=== PATIENT | male | born 1985 ===

== ENCOUNTER 2020-11-07 10:25 | Inpatient (IN) ==
[2020-11-07] MEDS ORDERED: NS 0.9% 1000 ml BAG 2,000 ML IV ONE (10:49)
[2020-11-07 11:34] LABS: Venous Bicarbonate HCO3 28.5 mmol/L (24-28)
[2020-11-07 11:41] LABS: ABS Lymphocytes 0.9 10^3/ul (1.0-4.8); ABS Monocytes 0.7 10^3/ul (0-0.8); ABS Neutrophils 9.5 10^3/ul (1.5-7.7); Hematocrit 44 % (42-52); Hemoglobin 15.6 g/dL (14.0-18.0); Lymphocyte % 7.9 %; Mean Corpuscular HGB Conc 35 g/dL (31-36); Mean Corpuscular Hemoglobin 31 pg (27-31); Mean Corpuscular Volume 88 fL (80-94); Mean Platelet Volume 8.3 fL (7.4-10.4); Nucleated Red Blood Cells % 0.1; Platelet Count 308 10^3/uL (150-450); Red Blood Count 5.02 10^6 /uL (4.18-5.48); Red Cell Distribution Width 12 % (10-15); White Blood Count 11.1 10^3/uL (3.5-10.8)
[2020-11-07 11:47] LABS: Activated Partial Thrombo Time 28.7 seconds (26.0-38.0); INR 1.21 (0.86-1.15)
[2020-11-07 11:54] LABS: Rapid COVID-19 Molecular Detected (Undetected)
[2020-11-07 11:56] LABS: Troponin I 0.01 ng/mL (<0.03)
[2020-11-07 11:56] LABS: Influenza A Molecular Negative (Negative); Influenza B Molecular Negative (Negative)
[2020-11-07 12:16] LABS: Albumin 3.9 g/dL (3.2-5.2); Albumin/Globulin Ratio 1.2 (1-3); C Reactive Protein 127.03 mg/L (<8.01); Calcium 8.9 mg/dL (8.6-10.3); EGFR African American 97.3 (>60); EGFR Non-African American 80.4 (>60); Globulin 3.2 g/dL (2-4); Potassium 4.2 mmol/L (3.5-5.0); Total Bilirubin 0.9 mg/dL (0.2-1.0); Total Protein 7.1 g/dL (6.4-8.9)
[2020-11-07 13:14] LABS: Ferritin 3041.3 ng/mL (24-336)
[2020-11-07] MEDS ORDERED: Al Hydrox/Mg Hydrox/Simet LIQ 30 ML UDC PO PRN (15:03)
[2020-11-07] MEDS ORDERED: Dexamethasone IV 4 MG/ML VIAL 1 ml VIAL IV SLOW PU ONE (15:08)
[2020-11-07] MEDS ORDERED: Albuterol HFA INHALER 8 gm MDI INH PRN (15:10)
[2020-11-07] MEDS ORDERED: Remdesivir 100 mg Vial 200 MG in NS 0.9% 250 ml 210 ML IV ONE (15:45)
[2020-11-07] MEDS: Enoxaparin 40 MG/0.4 ML SYR SUBCUT SCH (16:58)
[2020-11-08 05:03] LABS: ABS Lymphocytes 0.9 10^3/ul (1.0-4.8); ABS Monocytes 0.6 10^3/ul (0-0.8); ABS Neutrophils 7.2 10^3/ul (1.5-7.7); Hematocrit 43 % (42-52); Hemoglobin 15.2 g/dL (14.0-18.0); Lymphocyte % 10.5 %; Mean Corpuscular HGB Conc 35 g/dL (31-36); Mean Corpuscular Hemoglobin 32 pg (27-31); Mean Corpuscular Volume 90 fL (80-94); Mean Platelet Volume 7.9 fL (7.4-10.4); Platelet Count 341 10^3/uL (150-450); Red Blood Count 4.81 10^6 /uL (4.18-5.48); Red Cell Distribution Width 13 % (10-15); White Blood Count 8.7 10^3/uL (3.5-10.8)
[2020-11-08 05:13] LABS: INR 1.2 (0.86-1.15)
[2020-11-08 05:26] LABS: Calcium 8.9 mg/dL (8.6-10.3); EGFR African American 106.6 (>60); EGFR Non-African American 88.1 (>60); Potassium 4.5 mmol/L (3.5-5.0)
[2020-11-08] MEDS ORDERED: Furosemide 20 mg/2 ml IV VIAL IV ONE (10:15)
[2020-11-08 10:56] LABS: PCO2 Arterial 34 mmHg (35-45); PO2 Arterial 75 mmHg (80-100)
[2020-11-08] MEDS ORDERED: methylPREDNISolone 125 mg 2 ML VIAL IV ONE (11:04)
[2020-11-08] MEDS: BARICITINIB 2 MG PO SCH (11:32)
[2020-11-08] MEDS: Enoxaparin 40 MG/0.4 ML SYR SUBCUT SCH (17:46)
[2020-11-08] MEDS: Remdesivir 100 mg Vial 100 MG in NS 0.9% 250 ml 230 ML IV SCH (21:09)
[2020-11-08] MEDS: methylPREDNISolone SOD 40 mg/ml 1 ml VIAL IV SCH (21:09)
[2020-11-09 05:19] LABS: INR 1.23 (0.86-1.15)
[2020-11-09 05:36] LABS: Albumin 3.8 g/dL (3.2-5.2); Albumin/Globulin Ratio 1.1 (1-3); Calcium 9.1 mg/dL (8.6-10.3); EGFR African American 110.5 (>60); EGFR Non-African American 91.3 (>60); Globulin 3.4 g/dL (2-4); Potassium 4.3 mmol/L (3.5-5.0); Total Bilirubin 0.8 mg/dL (0.2-1.0); Total Protein 7.2 g/dL (6.4-8.9)
[2020-11-09] MEDS: methylPREDNISolone SOD 40 mg/ml 1 ml VIAL IV SCH ×2 (08:33→20:25)
[2020-11-09] MEDS: BARICITINIB 2 MG PO SCH (10:56)
[2020-11-09] MEDS ORDERED: Furosemide 40 mg/4 ml IV VIAL IV SLOW PU ONE (16:15)
[2020-11-09] MEDS: Enoxaparin 40 MG/0.4 ML SYR SUBCUT SCH (16:38)
[2020-11-09 16:47] LABS: PCO2 Arterial 38 mmHg (35-45); PO2 Arterial 73 mmHg (80-100)
[2020-11-09] MEDS: Remdesivir 100 mg Vial 100 MG in NS 0.9% 250 ml 230 ML IV SCH (20:39)
[2020-11-10 04:45] LABS: ABS Basophils 0.1 10^3/ul (0-0.2); ABS Lymphocytes 1.7 10^3/ul (1.0-4.8); ABS Monocytes 0.9 10^3/ul (0-0.8); ABS Neutrophils 9.5 10^3/ul (1.5-7.7); Hematocrit 45 % (42-52); Hemoglobin 15.2 g/dL (14.0-18.0); Mean Corpuscular HGB Conc 34 g/dL (31-36); Mean Corpuscular Hemoglobin 30 pg (27-31); Mean Corpuscular Volume 90 fL (80-94); Platelet Count 529 10^3/uL (150-450); Red Blood Count 5.01 10^6 /uL (4.18-5.48); Red Cell Distribution Width 12 % (10-15); White Blood Count 12.1 10^3/uL (3.5-10.8)
[2020-11-10 04:58] LABS: INR 1.28 (0.86-1.15)
[2020-11-10 05:24] LABS: Albumin 3.5 g/dL (3.2-5.2); CO2 Carbon Dioxide 31 mmol/L (22-32); Calcium 8.8 mg/dL (8.6-10.3); Chloride 97 mmol/L (101-111); Sodium 137 mmol/L (135-145)
[2020-11-10 05:29] LABS: ALT 128 U/L (7-52); Albumin/Globulin Ratio 1.1 (1-3); Alkaline Phosphatase 58 U/L (35-149); Blood Urea Nitrogen 26 mg/dL (6-24); EGFR African American 93.2 (>60); Globulin 3.1 g/dL (2-4); Glucose 201 mg/dL (70-100); Total Protein 6.6 g/dL (6.4-8.9)
[2020-11-10 06:16] LABS: Anion Gap 9 mmol/L (2-11)
[2020-11-10] MEDS: Enoxaparin 60 MG/0.6 ML SYR SUBCUT SCH ×2 (07:52→19:57)
[2020-11-10] MEDS: methylPREDNISolone SOD 40 mg/ml 1 ml VIAL IV SCH ×2 (07:52→19:57)
[2020-11-10] MEDS: BARICITINIB 2 MG PO SCH (09:09)
[2020-11-10] MEDS: Remdesivir 100 mg Vial 100 MG in NS 0.9% 250 ml 230 ML IV SCH (19:57)
[2020-11-11 06:24] LABS: ABS Lymphocytes 1.8 10^3/ul (1.0-4.8); ABS Monocytes 1.1 10^3/ul (0-0.8); ABS Neutrophils 9.7 10^3/ul (1.5-7.7); Hematocrit 43 % (42-52); Hemoglobin 14.9 g/dL (14.0-18.0); Mean Corpuscular HGB Conc 35 g/dL (31-36); Mean Corpuscular Hemoglobin 31 pg (27-31); Mean Corpuscular Volume 89 fL (80-94); Mean Platelet Volume 7.8 fL (7.4-10.4); Platelet Count 492 10^3/uL (150-450); Red Blood Count 4.82 10^6 /uL (4.18-5.48); Red Cell Distribution Width 12 % (10-15); White Blood Count 12.6 10^3/uL (3.5-10.8)
[2020-11-11 06:28] LABS: INR 1.23 (0.86-1.15)
[2020-11-11 06:46] LABS: Albumin 3.3 g/dL (3.2-5.2); Albumin/Globulin Ratio 1.1 (1-3); Calcium 8.6 mg/dL (8.6-10.3); EGFR African American 114.7 (>60); EGFR Non-African American 94.8 (>60); Potassium 4.5 mmol/L (3.5-5.0); Total Bilirubin 0.6 mg/dL (0.2-1.0); Total Protein 6.3 g/dL (6.4-8.9)
[2020-11-11] MEDS: methylPREDNISolone SOD 40 mg/ml 1 ml VIAL IV SCH (08:40)
[2020-11-11] MEDS: Enoxaparin 60 MG/0.6 ML SYR SUBCUT SCH ×2 (08:40→21:13)
[2020-11-11] MEDS: BARICITINIB 2 MG PO SCH (08:41)
[2020-11-11] MEDS: Remdesivir 100 mg Vial 100 MG in NS 0.9% 250 ml 230 ML IV SCH (21:11)
[2020-11-12 06:17] LABS: ABS Lymphocytes 3.6 10^3/ul (1.0-4.8); ABS Monocytes 1.1 10^3/ul (0-0.8); ABS Neutrophils 8.7 10^3/ul (1.5-7.7); Eosinophil % 0.2 %; Hematocrit 44 % (42-52); Hemoglobin 15.3 g/dL (14.0-18.0); Lymphocyte % 26.4 %; Mean Corpuscular HGB Conc 35 g/dL (31-36); Mean Corpuscular Hemoglobin 31 pg (27-31); Mean Corpuscular Volume 89 fL (80-94); Mean Platelet Volume 7.7 fL (7.4-10.4); Platelet Count 474 10^3/uL (150-450); Red Blood Count 4.98 10^6 /uL (4.18-5.48); Red Cell Distribution Width 12 % (10-15); White Blood Count 13.4 10^3/uL (3.5-10.8)
[2020-11-12 08:29] VITALS: BP 112/72
[2020-11-12] MEDS: BARICITINIB 2 MG PO SCH (08:30)
[2020-11-12] MEDS: Enoxaparin 60 MG/0.6 ML SYR SUBCUT SCH (08:30)
== END 2020-11-12 11:05 | disposition home or self-care (01) | DRG 720 ==
LOC: ED 10:25 → MED 14:52 → SUATTDRO 17:47 → ICU 11-09 18:47 → MED 11-10 23:29
PROVIDERS: ADMIT Internal Medicine; ATTEND Internal Medicine